=== PATIENT | male | born 1980 | race Caucasian/White ===

== ENCOUNTER 2016-08-25 14:05 | Emergency (ER) | payer OTHER ==
[~2016-08-25] VITALS: Ht 165.1 cm; Wt 68.0 kg
[~2016-08-25 14:05] MED LIST: AUGM875T PO; PERC5TAB12 PO
[2016-08-25 14:06] VITALS: BP 133/95; PULSE 75; RESP 16; TEMP 98.6; O2SAT 98
--- NOTE | 2016-08-25 14:57 | PD ---
HPI . Coughing and head congestion for approximately 2 weeks Chief Complaint: Cold / Flu Symptoms Time Seen by Provider: 14:57 Travel History International Travel<30 days: No Contact w/Intl Traveler<30days: No Traveled to known affect area: No History of Present Illness HPI 36-year-old male with history of allergies here with complaints of coughing and sinus pressure for about 2 weeks. Patient says he was seen by two doctors on separate occasions and told he had seasonal allergies. He was prescribed Singulair and told his symptoms would improve. He says 2 weeks later he is not feeling any better. He decided come to the emergency room for further evaluation as he is coughing and it's hurting his stomach. He also reports some head pressure and congestion. He denies any fever, chills, sore throat, nausea, vomiting or other issues. He denies any chest pain. PFSH Past Medical History Medical History: Denies Significant Hx Social History Alcohol Use: No Tobacco Use: No Substance Use: No Allergies-Medications (Allergen,Severity, Reaction): Coded Allergies: Avelox (Verified Allergy, Unknown, Nausea/Vomiting, 08/25/16) Reported Meds & Prescriptions Reported Meds & Active Scripts Active Reported Fluticasone Nasal [place] 50 Mcg/Act Naspr 50 Mcg EACH NARE BID 50 mcg/spray Montelukast (Montelukast Sodium) 10 Mg Tab 10 Mg PO HS Review of Systems General / Constitutional: No: Fever Eyes: No: Visual changes HENT: Positive: Congestion, No: Headaches Cardiovascular: No: Chest Pain or Discomfort Respiratory: Positive: Cough, No: Shortness of Breath Gastrointestinal: No: Abdominal Pain Genitourinary: No: Dysuria Musculoskeletal: No: Pain Skin: No Rash Neurologic: No: Weakness Psychiatric: No: Depression Endocrine: No: Polydipsia Hematologic/Lymphatic: No: Easy Bruising Physical Exam Narrative GENERAL: AAO x 3, no acute distress, Well-nourished, well-developed patient. SKIN: Warm and dry. No visible rashes or bruising. HEAD: Normocephalic and atraumatic. EYES: No scleral icterus. No injection or drainage. EOM intact, PERRLA ENT: No nasal drainage noted. Mucous membranes pink. Airway patent. No posterior pharynx erythema, exudates or edema. Mild postnasal drip. Maxillary sinus tenderness. NECK: Supple, trachea midline. No JVD. No lymphadenopathy. CARDIOVASCULAR: Regular rate and rhythm without murmurs, gallops, or rubs. RESPIRATORY: Breath sounds equal bilaterally. No accessory muscle use. No rhonchi or rales. GASTROINTESTINAL: Abdomen soft, non-tender, nondistended. GROIN: Nena [place] present: Right inguinal hernia that is totally reducible. EXTREMITIES: No cyanosis or edema. BACK: Nontender without obvious deformity. No CVA tenderness. PSYCH: AAO x 3, normal affect. Data Data Last Documented VS Vital Signs Date Time Temp Pulse Resp B/P Pulse Ox O2 Delivery O2 Flow Rate FiO2 08/25/16 14:06 98.6 75 16 133/95 98 MDM Medical Decision Making Medical Screen Exam Complete: Yes Emergency Medical Condition: Yes Medical Record Reviewed: Yes Differential Diagnosis Sinusitis, bronchitis, less likely pneumonia, right inguinal hernia Narrative Course 36-year-old male with history of allergies here with complaints of coughing and sinus pressure for about 2 weeks. Patient says he was seen by two doctors on separate occasions and told he had seasonal allergies. He was prescribed Singulair and told his symptoms would improve. He says 2 weeks later he is not feeling any better. He decided come to the emergency room for further evaluation as he is coughing and it's hurting his stomach. He also reports some head pressure and congestion. He denies any fever, chills, sore throat, nausea, vomiting or other issues. He denies any chest pain. Patient seen and examined. He appears to have findings consistent with sinusitis. He also likely has a mild bronchitis. Go ahead and prescribe him some antibiotics for his sinusitis and prednisone and Tessalon Perles for his bronchitis. Prior to discharge patient verbalized to our nurse that he had some type of bulging mass in his groin. I went back in to reexamine him and he has a right inguinal hernia that is totally reducible. I explained to him that he will need to follow-up his primary care provider for further evaluation and possible surgical intervention. I discussed the risk of strangulation and incarceration. I advised him that the cough or bronchitis could linger for 6-8 weeks. His been instructed to continue singulair. I recommend follow-up primary care provider Patient verbalized understanding of instructions, questions were answered, and thanked me for their care. I advised them if their condition worsens, please return to the nearest emergency room for further care. Diagnosis Primary Impression: Sinusitis Qualified Code: J01.00 - Acute non-recurrent maxillary sinusitis Additional Impression: Acute bronchitis Qualified Code: J20.9 - Acute bronchitis, unspecified organism Patient Instructions: Acute Bronchitis (ED), General Instructions, Sinusitis ( ED) Additional Instructions: As we discussed the cough can last 6-8 weeks. Take medications as prescribed. If you are a smoker, try to quit. Follow up with your primary care provider. If you develop sudden onset or worsening of shortness or breath, please go to the nearest emergency room. Please return to emergency department if your symptoms return or worsen. Follow up with your primary care provider. Take medications as prescribed. Med/Other Pt SpecificInfo: Prescription(s) given Disposition: 01 DISCHARGE HOME Condition: Stable Massiel Huber Aug 25, 2016 14:57
[2016-08-25] MEDS ORDERED: PRED50 PO (15:08)
[2016-08-25] MEDS ORDERED: BENZ100 PO (15:08)
[2016-08-25] MEDS ORDERED: AUGM875T PO (15:08)
[2016-08-25] MEDS ORDERED: ALBUAER3 INH (15:08)
[2016-08-25] MEDS ORDERED: FLUT50SP EACH NARE (15:12)
[2016-08-25] MEDS ORDERED: MONT10TA4 PO (15:12)
== END 2016-08-25 15:30 | disposition home or self-care (01) ==
LOC: NEPD 14:05
DX: J32.9 Chronic sinusitis, unspecified (principal); J20.9 Acute bronchitis, unspecified
CPT/HCPCS: 99283

== ENCOUNTER → 2016-10-18 | Day surgery (SDC) | payer OTHER ==
[~2016-10-18] VITALS: Ht 165.1 cm; Wt 66.4 kg
[~2016-10-18] MED LIST changes: +ACETAMINOPHEN 1000 MG/100 ML VIAL IV ONE; +ACETAMINOPHEN 1000 MG/100 ML VIAL IV SCH; -AUGM875T PO; +BUPIVACAINE/EPINEPHRINE 0.5% PF 30 ML VIAL ONE; +CHLORHEXIDINE GLUCONATE 2 % 1 PACK (2 CLOTHS) TOPICAL PRN; +FAMOTIDINE 20 MG/2 ML VIAL ONE; +FLUT50SP EACH NARE; +INSULIN HUMAN REGULAR 1,000 UNITS/10 ML VIAL SQ PRN; +LACTATED RINGER'S 1000 ML INJ 1,000 ML IV ONE; +LACTATED RINGER'S 1000 ML IV PRN; +METOPROLOL TARTRATE 25 MG TAB PO PRN; +MIDAZOLAM HCL 2 MG/2 ML VIAL ONE; +MONT10TA4 PO; +MORPHINE SULFATE 4 MG/ML INJ ONE; +NEOSTIGMINE 3 MG/3 ML SYR IV ONE; +ONDANSETRON HCL 4 MG/2 ML VIAL IV PUSH ONE; -PERC5TAB12 PO; +POVIDONE IODINE 5% (ANTISEPSIS KIT) 4 APPLICATIONS EACH NARE PRN; +PROPOFOL 200 MG/20 ML AMP IV ONE; +SODIUM CHLORID 0.9% 500 ML IV PRN; +ceFAZolin 2 GM PREMIX 50 ML IV SCH; +ePHEDrine/NS 25 MG/5 ML SYR IV ONE; +oxyCODONE/ACETAMINOPHEN 5 MG/325 MG TAB ONE
[2016-10-18 08:57] VITALS: BP 117/78; PULSE 67; RESP 18; TEMP 98.1; O2SAT 98
--- NOTE | 2016-10-18 11:27 | PD.OP ---
cc: Dmitry Jose MD Operative Report Date of Surgery: Oct 18, 2016 Preoperative Diagnosis: (1) Right inguinal hernia Postoperative Diagnosis: (1) Right inguinal hernia Procedure: Laparoscopic right inguinal hernia repair with mesh Anesthesia: ANU Surgeon: Dmitry Jose Sofa Back Upholsterer(s): Shine JONES Operation and Findings: EBL: 10cc Operative findings: The patient had a moderate sized chronic right indirect inguinal hernia Procedure in detail: The patient was taken to the operating room and placed in the supine position. General endotracheal anesthesia was induced. The abdomen was prepped and draped in usual sterile fashion and a surgical timeout performed to verify correct patient procedure and site. A 1 cm incision was made inferior to the umbilicus after infiltration of local anesthetic. Dissection carried down to the underlying fascia and the anterior fascia to the right of midline was incised vertically and the retrorectus space was developed and the dissecting balloon placed down towards the pubis. The extraperitoneal space was developed by insufflating the balloon. This trocar was then removed and the structural balloon was placed. The extraperitoneal space was insufflated to 11 mmHg with CO2 gas which the patient tolerated well. Next two 5 mm ports were placed in the lower midline. Attention was turned to the right inguinal area. Lateral dissection was carried out until the psoas muscle was identified. Medially Tonio's ligament was identified. The spermatic cord was from a large indirect hernia sac with careful dissection. There was no femoral or direct hernia. Ultrapro advanced mesh was cut to 12 x 15 cm size and was placed in the right inguinal area. It was attached at Tonio's ligament and superior laterally as well as of the rectus anteriorly with Capsure tacker. There was complete coverage of the entire inguinal floor including the indirect and direct spaces. The extraperitoneal spaces and allowed to desufflate and trochars were removed. The anterior fascia was closed with running 2-0 Vicryl suture and skin with 4-0 Monocryl subcuticular as well as Dermabond. The patient tolerated the procedure well and was extubated and taken to PACU in stable condition. Dmitry Jose MD Oct 18, 2016 11:27
[2016-10-18 13:36] VITALS: BP 104/66; PULSE 70; RESP 16; TEMP 97.7; O2SAT 100
== END | disposition home or self-care (01) ==
LOC: HSDC 08:33
PROVIDERS: ATTEND Surgery
DX: K40.90 Unilateral inguinal hernia, without obstruction or gangrene, not specified as recurrent (principal)
CPT/HCPCS: 00840; 49650; C1727; C1781; J0131; J0690; J2250; J2270; J2405; J2710; J3010; J7120